=== PATIENT | female | born 1975 | race Asian ===

== ENCOUNTER → 2023-05-10 13:03 | Outpatient (REF) | payer OTHER, SELFPAY ==
[2023-05-10 10:34] LABS: % Basophils 0.5 % (0-2); % Eosinophils 0.7 % (0-6); % Immature Granulocytes 0.5 % (0-0.5); % Lymphocytes 37.3 % (20.5-51.1); % Monocytes 15.2 % (1.7-9.3); % Neutrophils 45.8 % (42.2-75.2); Absolute Lymphocytes 1.5 10^3/uL (1.2-3.4); Absolute Monocytes 0.6 10^3/uL (0.1-0.6); Absolute Neutrophils 1.8 10^3/uL (1.4-6.5); Hemoglobin 12.6 g/dL (12.0-16.0); Mean Corpuscular Hgb 32.6 pg (27.0-31.0); Mean Corpuscular Volume 93.3 fL (81.0-99.0); Mean Platelet Volume 9.5 fL (7.4-10.4); Platelet Count 140 10^3/uL (130-400); Red Blood Cell Count 3.86 10^6/uL (4.20-5.40)
[2023-05-10 11:04] LABS: ALT (SGPT) 31 U/L (0-35); AST (SGOT) 31 U/L (14-36); Alkaline Phosphatase 64 U/L (38-126); Blood Urea Nitrogen 11 mg/dl (7-17); Calcium 9.5 mg/dl (8.4-10.2); Carbon Dioxide 29 mmol/L (22-30); Chloride 100 mmol/L (98-107); Glucose 220 mg/dl (70-99); Potassium 3.8 mmol/L (3.5-5.1); Sodium 137 mmol/L (135-145); Total Bilirubin 0.7 mg/dl (0.2-1.3); Total Protein 6.7 g/dl (6.3-8.2); eGFR > 60.00
[2023-05-10 11:30] LABS: Albumin 3.9 g/dl (3.5-5.0)
== END ==
LOC: OIDL 13:03
PROVIDERS: ATTENDING PHYSICIAN Internal Medicine Hematology & Oncology
DX: C50.211 Malignant neoplasm of upper-inner quadrant of right female breast (principal)
CPT/HCPCS: 80053; 85025

== ENCOUNTER → 2023-06-23 08:28 | Outpatient (REF) | payer OTHER, SELFPAY | LOC: RAD 08:28 | PROVIDERS: ATTENDING PHYSICIAN Nurse Practitioner Adult Health; FAMILY PHYSICIAN Physician Assistant Medical | DX: C50.211 Malignant neoplasm of upper-inner quadrant of right female breast (principal); E03.2 Hypothyroidism due to medicaments and other exogenous substances; K71.6 Toxic liver disease with hepatitis, not elsewhere classified | CPT/HCPCS: 71046 ==

== ENCOUNTER → 2023-07-03 13:24 | Outpatient (REF) | payer OTHER, SELFPAY | LOC: HWRAD 13:24 | PROVIDERS: ATTENDING PHYSICIAN Nurse Practitioner Adult Health; FAMILY PHYSICIAN Physician Assistant Medical | DX: C50.211 Malignant neoplasm of upper-inner quadrant of right female breast (principal) | CPT/HCPCS: 71260; Q9967 ==

== ENCOUNTER → 2023-07-05 08:04 | Outpatient (REF) | payer OTHER, SELFPAY | LOC: WDC 08:04 | PROVIDERS: ATTENDING PHYSICIAN Surgery | DX: C50.411 Malignant neoplasm of upper-outer quadrant of right female breast (principal) | CPT/HCPCS: 19285; 38792; 76942; 77065; A4648; A9541 ==

== ENCOUNTER → 2023-07-06 06:25 | Day surgery (SDC) | payer OTHER, SELFPAY ==
[2023-06-26 07:23] VITALS: BMI 21.6
[2023-06-26 08:41] LABS: Hematocrit 38.8 % (37.0-47.0); Hemoglobin 13.9 g/dL (12.0-16.0); Mean Corp Hgb Conc. 35.8 g/dL (33.0-37.0); Mean Corpuscular Hgb 31.5 pg (27.0-31.0); Mean Platelet Volume 8.7 fL (7.4-10.4); Platelet Count 157 10^3/uL (130-400); Red Blood Cell Count 4.41 10^6/uL (4.20-5.40); Red Cell Dist. Width 12.5 % (11.5-14.5); White Blood Cell Count 4.9 10^3/uL (4.8-10.8)
[2023-06-26 09:18] LABS: ALT (SGPT) 27 U/L (0-35); AST (SGOT) 33 U/L (14-36); Albumin 4.5 g/dl (3.5-5.0); Alkaline Phosphatase 73 U/L (38-126); Blood Urea Nitrogen 8 mg/dl (7-17); Calcium 9.6 mg/dl (8.4-10.2); Carbon Dioxide 26 mmol/L (22-30); Chloride 102 mmol/L (98-107); Estimated Creatinine Clearance 92 ml/min; Glucose 111 mg/dl (70-99); Potassium 3.8 mmol/L (3.5-5.1); Sodium 136 mmol/L (135-145); Total Bilirubin 1.1 mg/dl (0.2-1.3); Total Protein 7.5 g/dl (6.3-8.2); eGFR > 60.00
[2023-06-26 09:24] LABS: Prealbumin (Transthyretin) 24.2 mg/dl (17.6-36.0)
[2023-06-26 09:37] LABS: Vitamin D, 25-OH*** 23.2 ng/mL (30-80)
[2023-06-26 09:50] LABS: Cortisol, Random 10.8 ug/dl
--- NOTE | 2023-07-02 12:15 | PTCARENOTE ---
Abnormal chest x-ray from 06/23/23; Melodie at Dr. Brown's office was notified.
--- NOTE | 2023-07-03 12:32 | PTCARENOTE ---
CXR ok per Dr. Pena.
[2023-07-06 10:28] VITALS: BMI 21.6
[2023-07-06] MEDS: TYLENOL 1000 MG PO (10:36)
[2023-07-06] MEDS: LOVENOX 40 MG SC (10:36)
[2023-07-06] MEDS: NORMOSOL-R 1000 IV (10:39)
[2023-07-06 10:48] VITALS: BP 125/88
[2023-07-06 16:45] VITALS: BP 107/60; BP 125/88
--- NOTE | 2023-07-06 16:50 | W.IMMPOSTOP ---
Surgical Immed Post Op Note
-
Primary Surgeon: Kevin
Assisting Surgeon: None
Pre-op Diagnosis: Right breast cancer
Post-op Diagnosis: Same
Procedure Performed: Right localized lumpectomy, sentinel lymph node mapping and biopsy and closure
with oncoplastic mastoplasty
Anesthesia Type: General LMA
Specimen / Cultures: Right lumpectomy, margins, sentinel nodes
Estimated Blood Loss: 10cc
Complications: None
Operative Findings: Neg nodes, clip, mass and reflector in specimen
[place] Node Bx Breast Cancer
[place] Node Bx Breast Cancer
Operation performed with curative intent: Yes
Tracer(s) to ID [place] Nodes in Non-Neoadjuvant setting: N/A
Tracer(s) to ID [place] Nodes in the Neoadjuvant Setting: Dye and Radioactive Tracer
All nodes at end of dye-filled Lymphatic Channel removed: Yes
All Significantly Radioactive Nodes were removed: Yes
All Palpably Suspicious Nodes were Removed: Yes
Bx [place] Nodes Marked Prior to Chemo ID'd & Removed: N/A
[2023-07-06 17:00] VITALS: BP 117/71
[2023-07-06 17:15] VITALS: BP 120/72
[2023-07-06 17:30] VITALS: BP 128/63
[2023-07-06] MEDS: ROXICODONE 5 MG PO (17:48)
--- NOTE | 2023-07-06 18:05 | VATNOTE ---
left subq port deaccessed per protocol w/ 500 units heparin administered via port. brisk blood return noted prior to.
[2023-07-06 18:09] VITALS: BP 114/83
== END ==
LOC: SDS 06:25
PROVIDERS: ATTENDING PHYSICIAN Surgery; FAMILY PHYSICIAN Physician Assistant Medical; OTHER PHYSICIAN Internal Medicine Hematology & Oncology
DX: C50.411 Malignant neoplasm of upper-outer quadrant of right female breast (principal); Z17.0 Estrogen receptor positive status [ER+]
CPT/HCPCS: 38525; 19301; 88305; 88307; 36415; 76098; 80053; 82306; 82533; 84134; 85027; 88341; 88342; A4648

== ENCOUNTER → 2023-08-08 11:42 | Outpatient (REF) | payer OTHER, SELFPAY ==
[2023-08-08 12:14] LABS: HCG, Urine Qualitative Screen Negative
== END ==
LOC: REG 11:42
PROVIDERS: ATTENDING PHYSICIAN Radiology Radiation Oncology
DX: C50.411 Malignant neoplasm of upper-outer quadrant of right female breast (principal); Z17.1 Estrogen receptor negative status [ER-]
CPT/HCPCS: 81025

== ENCOUNTER → 2023-11-24 08:57 | Outpatient (REF) | payer OTHER, SELFPAY | LOC: RCS 08:57 | PROVIDERS: ATTENDING PHYSICIAN Internal Medicine Hematology & Oncology; FAMILY PHYSICIAN Physician Assistant Medical | DX: C50.211 Malignant neoplasm of upper-inner quadrant of right female breast (principal); E03.2 Hypothyroidism due to medicaments and other exogenous substances; K71.6 Toxic liver disease with hepatitis, not elsewhere classified | CPT/HCPCS: 93005 ==

== ENCOUNTER → 2023-11-28 09:02 | Outpatient (REF) | payer OTHER, SELFPAY ==
[2023-11-28 09:20] VITALS: BP 112/63; BP_SYST 96
[2023-11-28 10:25] VITALS: BP 104/54
[2023-11-28 10:30] VITALS: BP 104/54; BP_SYST 77
== END ==
LOC: RADI 09:02
PROVIDERS: ATTENDING PHYSICIAN Internal Medicine Hematology & Oncology; FAMILY PHYSICIAN Nurse Practitioner Adult Health
DX: Z45.2 Encounter for adjustment and management of vascular access device (principal); Z85.3 Personal history of malignant neoplasm of breast
CPT/HCPCS: 36590; 77001

== ENCOUNTER → 2023-12-31 06:28 | Day surgery (SDC) | payer OTHER, SELFPAY | LOC: GI 06:28 | PROVIDERS: ATTENDING PHYSICIAN Internal Medicine Gastroenterology | DX: Z12.11 Encounter for screening for malignant neoplasm of colon (principal); K64.8 Other hemorrhoids | CPT/HCPCS: G0121 ==

== ENCOUNTER → 2024-06-25 14:54 | Outpatient (REF) | payer BC, SELFPAY | LOC: WDC 14:54 | PROVIDERS: ATTENDING PHYSICIAN Surgery; FAMILY PHYSICIAN Physician Assistant Medical | DX: Z12.31 Encounter for screening mammogram for malignant neoplasm of breast (principal); Z85.3 Personal history of malignant neoplasm of breast; C50.411 Malignant neoplasm of upper-outer quadrant of right female breast | CPT/HCPCS: 77063; 77067 ==